=== PATIENT | male | born 1955 | race Caucasian/White ===

== ENCOUNTER 2017-08-12 14:45 | Emergency (ER) | payer OTHER ==
[~2017-08-12 14:45] MED LIST: TRAM100T19 PO; TRAM50 PO
[2017-08-12 14:48] VITALS: BP 164/80; PULSE 79; RESP 16; TEMP 98.1; O2SAT 96
[2017-08-12] MEDS ORDERED: HTN MED (14:55)
[2017-08-12] MEDS ORDERED: ANTIDEPRESSANT (14:55)
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
== END 2017-08-12 16:18 | disposition home or self-care (01) ==
LOC: PHED 14:45
DX: S80.12XA Contusion of left lower leg, initial encounter (principal); I10 Essential (primary) hypertension; E78.00 Pure hypercholesterolemia, unspecified; F17.200 Nicotine dependence, unspecified, uncomplicated; Z87.09 Personal history of other diseases of the respiratory system; Z86.79 Personal history of other diseases of the circulatory system; V19.88XA Pedal cyclist (driver) (passenger) injured in other specified transport accidents, initial encounter; Y93.55 Activity, bike riding
CPT/HCPCS: 73080; 73502; 73552; 73590; 99284